=== PATIENT | female | born 1990 ===

== ENCOUNTER 2018-01-20 13:44 | Inpatient (IN) ==
[2018-01-20] MEDS ORDERED: ceFAZolin 2 GM Premix Inj 2 GM/50 ML PIGGYBACK IV.SIG ONE (13:47)
[2018-01-20] MEDS ORDERED: fentaNYL Citrate Inj 100 MCG/2 ML Ampul ONE ×2 (13:48→13:57)
[2018-01-20] MEDS ORDERED: Morphine Sulfate Inj 8 MG/ML Vial IV.PUSH PRN (14:06)
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
[2018-01-20 14:12] LABS: Baso # (Auto) 0.1 th/mm3 (0.0-0.2); Baso % (Auto) 0.8 % (0.0-2.0); Eos # (Auto) 0.4 th/mm3 (0.0-0.4); Eos % (Auto) 3.2 % (0.0-4.0); Hematocrit 38.8 % (35.0-46.0); Hemoglobin 12.9 gm/dL (11.6-15.3); Lymph # (Auto) 3.2 th/mm3 (1.0-4.8); Lymph % (Auto) 26.4 % (9.0-44.0); Mean Corpuscular HGB Conc 33.3 % (32.0-36.0); Mean Corpuscular Hemoglobin 30.9 pg (27.0-34.0); Mean Corpuscular Volume 92.9 fL (80.0-100.0); Mean Platelet Volume 8.8 fL (7.0-11.0); Mono # (Auto) 0.8 th/mm3 (0.0-0.9); Mono % (Auto) 6.9 % (0.0-8.0); Neut # (Auto) 7.7 th/mm3 (1.8-7.7); Neut % (Auto) 62.7 % (16.0-70.0); Platelet Count 350 th/mm3 (150-450); Red Blood Count 4.18 mil/mm3 (4.00-5.30); Red Cell Distribution Width 13.1 % (11.6-17.2); White Blood Count 12.3 th/mm3 (4.0-11.0)
[2018-01-20] MEDS ORDERED: Diphtheria/Tetanus/Pertussis Vaccine Inj 0.5 ML Syringe IM ONE (14:15)
[2018-01-20 14:18] LABS: Activated Partial Thrombo Time 21.6 sec (24.3-30.1); Prothrombin Time 10.2 sec (9.8-11.6)
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
[2018-01-20] MEDS ORDERED: Pantoprazole Inj 40 MG Vial IV.PUSH SCH (15:00)
[2018-01-20] MEDS: Sod Chloride 0.9% Inj 1,000 ML IV.CONT SCH (15:10)
[2018-01-20] MEDS: Morphine Inj 4 MG/ML Vial ONE ×3 (15:10→15:15)
[2018-01-20] MEDS ORDERED: Naloxone Inj 0.4 MG/ML Vial IV.PUSH PRN ×2 (15:12→15:36)
[2018-01-20] MEDS ORDERED: Post-op Orders (for Pharmacy) OTHER ONE (15:12)
[2018-01-20] MEDS ORDERED: HYDROmorphone PF Inj 1 MG/ML Ampul IV.PUSH PRN (15:12)
[2018-01-20] MEDS ORDERED: Bisacodyl 10 MG Supp RECTAL PRN (15:12)
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
[2018-01-20] MEDS ORDERED: HYDROmorphone PF Inj 2 MG/ML Vial IV.PUSH PRN (15:30)
[2018-01-20] MEDS ORDERED: Morphine Inj 4 MG/ML Vial IV.PUSH PRN (15:32)
[2018-01-20] MEDS: HYDROmorphone PCA Inj 6 MG/30 ML PCA.VIAL PCA PRN (15:54)
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
[2018-01-20] MEDS ORDERED: Ketorolac Inj 30 MG/ML (IVP) Vial IV.PUSH SCH (16:00)
[2018-01-20] MEDS: Multivitamin Inj 10 ML, Thiamine Inj 100 MG, Folic Acid Inj 1 MG in Sodium Chlor 0.9% I... IV.SIG SCH (16:54)
[2018-01-20] MEDS: Senna/Docusate Sodium 8.6/50 MG Tablet PO SCH (20:47)
[2018-01-20] MEDS ORDERED: Docusate Sodium 100 MG Capsule PO SCH (21:00)
[2018-01-20] MEDS: Ketorolac Inj 30 MG/ML (IVP) Vial IV.PUSH SCH (22:05)
[2018-01-21] MEDS ORDERED: Chlorhexidine Gluconate 2% 1 Pack (2 Cloths) TOPICAL PRN (04:00)
[2018-01-21 05:04] LABS: Baso % (Auto) 0.5 % (0.0-2.0); Eos % (Auto) 0.2 % (0.0-4.0); Hematocrit 30.5 % (35.0-46.0); Hemoglobin 10.3 gm/dL (11.6-15.3); Lymph # (Auto) 1.2 th/mm3 (1.0-4.8); Lymph % (Auto) 13.3 % (9.0-44.0); Mean Corpuscular HGB Conc 33.7 % (32.0-36.0); Mean Corpuscular Hemoglobin 31.7 pg (27.0-34.0); Mean Corpuscular Volume 94.1 fL (80.0-100.0); Mean Platelet Volume 8.4 fL (7.0-11.0); Mono # (Auto) 0.7 th/mm3 (0.0-0.9); Mono % (Auto) 8.4 % (0.0-8.0); Neut # (Auto) 6.8 th/mm3 (1.8-7.7); Neut % (Auto) 77.6 % (16.0-70.0); Platelet Count 213 th/mm3 (150-450); Red Blood Count 3.24 mil/mm3 (4.00-5.30); Red Cell Distribution Width 13.2 % (11.6-17.2); White Blood Count 8.8 th/mm3 (4.0-11.0)
[2018-01-21] MEDS: HYDROmorphone PCA Inj 6 MG/30 ML PCA.VIAL PCA PRN ×2 (05:05→19:17)
[2018-01-21] MEDS: Ketorolac Inj 30 MG/ML (IVP) Vial IV.PUSH SCH ×3 (05:07→15:19)
[2018-01-21] MEDS: Sod Chloride 0.9% Inj 1,000 ML IV.CONT SCH ×2 (05:07→10:22)
[2018-01-21] MEDS: Chlorhexidine Gluconate 2% 1 Pack (2 Cloths) TOPICAL SCH (05:08)
[2018-01-21 05:22] LABS: Anion Gap 10 meq/L (5-15); Blood Urea Nitrogen 15 mg/dL (7-18); Calcium 7.2 mg/dL (8.5-10.1); Chloride 109 meq/L (98-107); Glomerular Filtration Rate Greater Than 89 mL/min (>89); Glucose,Random 94 mg/dL (74-106); Potassium 4.1 meq/L (3.5-5.1); Sodium 143 meq/L (136-145)
[2018-01-21 05:35] LABS: Total Protein 6.2 g/dL (6.4-8.2)
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
[2018-01-21] MEDS: Senna/Docusate Sodium 8.6/50 MG Tablet PO SCH (08:39)
[2018-01-21] MEDS: Multivitamin Inj 10 ML, Thiamine Inj 100 MG, Folic Acid Inj 1 MG in Sodium Chlor 0.9% I... IV.SIG SCH (15:55)
[2018-01-22] MEDS: Ketorolac Inj 30 MG/ML (IVP) Vial IV.PUSH SCH ×5 (01:51→21:08)
[2018-01-22] MEDS: Sod Chloride 0.9% Inj 1,000 ML IV.CONT SCH (01:51)
[2018-01-22] MEDS: Senna/Docusate Sodium 8.6/50 MG Tablet PO SCH ×3 (01:51→21:09)
[2018-01-22] MEDS ORDERED: HYDROmorphone PF Inj 2 MG/ML Vial IV.PUSH PRN (05:23)
[2018-01-22] MEDS: Chlorhexidine Gluconate 2% 1 Pack (2 Cloths) TOPICAL SCH (05:29)
--- NOTE | 2018-01-22 06:40 | P.PNOP ---
Subjective Interval history: s/p left rami and sacral fxs doing well. out of bed to chair yesterday. pain controlled Physical Exam Vital signs: Vital Signs 01/21/18 08:00 01/21/18 10:00 01/21/18 10:14 Temperature 98.6 F Pulse Rate 79 80 Respiratory Rate 13 Blood Pressure 122/57 L Pulse Oximetry 98 98 01/21/18 12:00 01/21/18 14:00 01/21/18 16:00 Temperature 98.8 F 98.8 F Pulse Rate 81 90 92 H Respiratory Rate 14 28 H Blood Pressure 119/69 110/61 Pulse Oximetry 99 98 01/21/18 18:00 01/21/18 20:00 01/21/18 22:00 Temperature 99.1 F Pulse Rate 85 91 H 99 H Respiratory Rate 21 20 Blood Pressure 126/71 130/77 Pulse Oximetry 97 98 01/21/18 23:09 01/22/18 00:00 01/22/18 01:46 Temperature 100.7 F H Pulse Rate 99 H Respiratory Rate 14 15 14 Blood Pressure 132/62 Pulse Oximetry 99 01/22/18 04:00 Temperature 100.2 F H Pulse Rate 99 H Respiratory Rate 20 Blood Pressure 116/56 L Pulse Oximetry 95 Intake & Output 01/21/18 01/21/18 01/22/18 06:59 18:59 06:59 Intake Total 1125 / 1125 2406.2 / 2406.2 1000 / 1000 Output Total 1150 / 1150 Balance 1125 / 1125 1256.2 / 1256.2 1000 / 1000 Weight 75.5 kg Intake: IV 1125 / 1125 1386.2 / 1386.2 1000 / 1000 NS Inj 1,000 ML @ 100 mls/hr IV 1000 / 1000 1000 / 1000 1000 / 1000 .CONT .Q10H [facility] Rx#:[id number] MVI-12 Inj 10 ML Thiamine Inj 125 / 125 386.2 / 386.2 100 MG Folvite Inj 1 MG In NS Inj 500 ML @ 125 mls/hr IV.SIG Q24H [facility] Rx#:[id number] Oral 1020 / 1020 Output: Urine 1150 / 1150 Other: Date of Last Bowel Movement 01/20/18 01/20/18 01/20/18 Narrative: LLE: nvi. minimal pain with motion. minimal swelling Results - Labs CBC & Chem 7: 01/21/18 04:44 01/21/18 04:44 Assessment and Plan - Assessment and Plan 1) Left Sacral and Pubic Rami Fxs -TTWB -work with therapy -will order XR today to recheck fracture alignment -if any significant displacement, could require surgical intervention -assuming it is maintaining, will plan for nonop
[2018-01-22 07:10] LABS: Baso % (Auto) 0.5 % (0.0-2.0); Eos # (Auto) 0.2 th/mm3 (0.0-0.4); Eos % (Auto) 2.4 % (0.0-4.0); Hematocrit 25.2 % (35.0-46.0); Hemoglobin 8.8 gm/dL (11.6-15.3); Lymph % (Auto) 14.9 % (9.0-44.0); Mean Corpuscular HGB Conc 35.1 % (32.0-36.0); Mean Corpuscular Hemoglobin 32.3 pg (27.0-34.0); Mean Corpuscular Volume 91.8 fL (80.0-100.0); Mean Platelet Volume 8.6 fL (7.0-11.0); Mono # (Auto) 0.5 th/mm3 (0.0-0.9); Mono % (Auto) 8.5 % (0.0-8.0); Neut # (Auto) 4.8 th/mm3 (1.8-7.7); Neut % (Auto) 73.7 % (16.0-70.0); Platelet Count 175 th/mm3 (150-450); Red Blood Count 2.74 mil/mm3 (4.00-5.30); Red Cell Distribution Width 12.9 % (11.6-17.2); White Blood Count 6.5 th/mm3 (4.0-11.0)
[2018-01-22 07:23] LABS: Anion Gap 11 meq/L (5-15); Blood Urea Nitrogen 8 mg/dL (7-18); Calcium 7.1 mg/dL (8.5-10.1); Carbon Dioxide 23.5 meq/L (21.0-32.0); Chloride 108 meq/L (98-107); Glomerular Filtration Rate Greater Than 89 mL/min (>89); Glucose,Random 83 mg/dL (74-106); Potassium 3.4 meq/L (3.5-5.1); Sodium 142 meq/L (136-145)
[2018-01-22 07:38] LABS: Total Protein 5.5 g/dL (6.4-8.2)
[2018-01-22] MEDS: Gabapentin 100 MG Capsule PO SCH ×3 (08:42→17:23)
[2018-01-22] MEDS: oxyCODONE/Acetaminophen 10/325 Tablet PO PRN ×3 (08:43→17:23)
--- NOTE | 2018-01-22 10:58 | XR ---
EXAM DATE: 01/22/2018 12:00 AM EDT AGE/SEX: 27 years / Female INDICATIONS: Left pelvic fracture. CLINICAL DATA: This is the patient's subsequent encounter. Patient reports that signs and symptoms h ave been present for 2 days and indicates a pain score of 7/10. MEDICAL/SURGICAL HISTORY: None. None. COMPARISON: [facility] [place], PELVIS AP 1V, 01/20/2018. . FINDINGS: 3 views of the pelvis including inlet and outlet views reveal acute fractures involving the superior and inferior pubic rami on the left. There is an acute fracture involving the left sacral ala. There is mild inferior displacement of the pubic symphysis and associated fracture fragments of the superio r and inferior pubic rami relative to the more lateral components of those fractures. Femoral heads r emain in contact with the acetabulum. Venous calcifications overlie the pelvis. CONCLUSION: Left sacral ala and left pubic rami fractures as detailed above. Electronically signed by: Jb Watson MD 01/22/2018 10:57 AM EDT
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
[2018-01-23] MEDS: oxyCODONE/Acetaminophen 10/325 Tablet PO PRN ×5 (00:34→21:34)
[2018-01-23] MEDS: Ketorolac Inj 30 MG/ML (IVP) Vial IV.PUSH SCH ×3 (03:55→15:17)
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
[2018-01-23 07:06] LABS: Baso % (Auto) 0.7 % (0.0-2.0); Eos # (Auto) 0.2 th/mm3 (0.0-0.4); Eos % (Auto) 3.8 % (0.0-4.0); Hematocrit 23.8 % (35.0-46.0); Hemoglobin 8.1 gm/dL (11.6-15.3); Lymph # (Auto) 0.9 th/mm3 (1.0-4.8); Mean Corpuscular HGB Conc 34.2 % (32.0-36.0); Mean Corpuscular Hemoglobin 31.8 pg (27.0-34.0); Mean Corpuscular Volume 93.2 fL (80.0-100.0); Mean Platelet Volume 8.5 fL (7.0-11.0); Mono # (Auto) 0.6 th/mm3 (0.0-0.9); Mono % (Auto) 9.1 % (0.0-8.0); Neut # (Auto) 4.5 th/mm3 (1.8-7.7); Neut % (Auto) 71.4 % (16.0-70.0); Platelet Count 180 th/mm3 (150-450); Red Blood Count 2.56 mil/mm3 (4.00-5.30); Red Cell Distribution Width 13.3 % (11.6-17.2); White Blood Count 6.2 th/mm3 (4.0-11.0)
[2018-01-23 07:31] LABS: Calcium 7.8 mg/dL (8.5-10.1); Carbon Dioxide 27.3 meq/L (21.0-32.0); Potassium 3.6 meq/L (3.5-5.1)
[2018-01-23] MEDS: Senna/Docusate Sodium 8.6/50 MG Tablet PO SCH ×2 (08:24→21:34)
[2018-01-23] MEDS: Gabapentin 100 MG Capsule PO SCH ×3 (08:24→17:08)
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
[2018-01-23] MEDS: Enoxaparin Inj 40 MG/0.4 ML Syringe SQ SCH (11:15)
[2018-01-23] MEDS: Multivitamin Inj 10 ML, Thiamine Inj 100 MG, Folic Acid Inj 1 MG in Sodium Chlor 0.9% I... IV.SIG SCH (19:44)
[2018-01-24] MEDS: oxyCODONE/Acetaminophen 10/325 Tablet PO PRN ×3 (04:52→15:39)
[2018-01-24] MEDS ORDERED: Ibuprofen 600 MG Tablet PO PRN (07:03)
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
--- NOTE | 2018-01-24 07:45 | P.DCO ---
- Physical Therapy Order: Evaluate and treat, Improve ambulation, Strength and gait training - Home Health Nursing Order: Medical education, Signs/symptoms of disease process, Medication education-adverse effect, Nursing assessment with vital signs - Case Management Consult Yes - Certification I have seen patient Girma Ward on 01/24/18. My clinical findings support the need for the requested home health care services because: Limited mobility due to disease progression, Deconditioned with increased weakness, Limited ability to care for self, High risk of falls I certify that my clinical findings support that this patient is homebound because: Post-op weakness, Unsteady gait/balance, Unsafe to leave home unassisted, Unable to use public transportation
[2018-01-24] MEDS: Gabapentin 100 MG Capsule PO SCH ×2 (08:45→12:35)
[2018-01-24] MEDS: Enoxaparin Inj 40 MG/0.4 ML Syringe SQ SCH (08:45)
[2018-01-24] MEDS: Senna/Docusate Sodium 8.6/50 MG Tablet PO SCH (08:45)
[2018-01-24 13:08] VITALS: RESP 18; O2SAT 97
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
[2018-01-24 17:50] VITALS: BP 144/62; PULSE 83; TEMP 98.8
== END 2018-01-24 17:57 | disposition home or self-care (01) ==
LOC: NEPI 13:44 → MERGE 14:03 → EDBD 14:03 → NEDA 14:03 → N03 14:38 → N06 01-21 21:45
PROVIDERS: ADMIT Surgery; ATTEND Surgery